=== PATIENT | male | born 1955 | race Caucasian/White ===

== ENCOUNTER → 2019-03-17 | Day surgery (SDC) | payer MEDICARE ==
[2019-03-12 14:40] LABS: BASOPHILS # (AUTO) 0.1 (0.0-0.1); BASOPHILS % 0.6 % (0.0-1.0); EOSINOPHILS # (AUTO) 0.3 (0.0-0.4); HEMATOCRIT 41.7 % (38.2-49.6); HEMOGLOBIN 14.3 g/dL (14.0-18.0); LYMPHOCYTES # (AUTO) 1.8 (1.0-3.2); LYMPHOCYTES % 16.1 % (18.0-39.1); MEAN CORPUSCULAR HEMOGLOBIN 33.5 pg (28-32); MEAN CORPUSCULAR HGB CONC 34.3 g/dL (31-35); MEAN CORPUSCULAR VOLUME 97.7 fL (81-99); MONOCYTES % 9.1 % (4.4-11.3); NEUTROPHILS # (AUTO) 7.7 (2.1-6.9); NEUTROPHILS % 70.6 % (38.7-80.0); PLATELET COUNT 203 x10e3/uL (140-360); RED BLOOD COUNT 4.27 x10e6/uL (4.3-5.7); RED CELL DISTRIBUTION WIDTH 12.6 % (11.7-14.4)
[~2019-03-17] MED LIST: ASPIRIN81 MG PO; ATORVASTATIN CA20 MG PO; BENAZEPRIL HCL20 MG PEG; CALAN SR240 MG PO; CHLORTHALIDONE25 MG PO; FENTANYL CITRATE/PF 100MCG/2 ML INJ ONE; INSPRA50 MG PO; MIDAZOLAM HCL 2 MG/2 ML VIAL ONE; MULTI-VITAMIN1 EACH PO; PROPOFOL IV EMULSION 10 MG/ML 50 ML VIAL ONE; PSYLLIUM HUSK1 GM PO; VITAMIN E400 UNI1 PO
--- OUTSIDE RECORDS SUMMARY | 2019-03-17 06:27 | XMS REPORT | Clinical Summary ---
Author Author [facility] Address Unknown Phone Unavailable Care Team Providers Care Lime Filter Operator Name Role Phone Darline Silver PCP Unavailable Allergies Comments Active Allergy Reactions Severity Noted Date Lip swelling, no breathing problem Ascorbic Acid (Vitamin C) Swelling Medium 04/21/2015 Skin spots Sulfa (Sulfonamide Rash Low 04/27/2013 Antibiotics) Medications End Date Status Medication Sig Dispensed Refills Start Date Active benazepril (LOTENSIN) 20 Take 20 mg by 0 MG tablet mouth 4 (four) times daily Patient takes 3 tablets (20mg x3) in in the morning and t tablet (20mg) in the evening.. Active chlorthalidone (HYGROTEN) Take 12.5 mg 0 25 MG tablet by mouth daily . Active atorvastatin (LIPITOR) 20 Take 20 mg by 0 MG tablet mouth daily . Active aspirin 81 MG EC tablet Take 81 mg by 0 mouth daily. Active verapamil (VERELAN PM) Take 360 mg 0 360 MG 24 hr by mouth. 6 capsuleIndications: NAFLD (nonalcoholic fatty liver disease), Abnormal liver function test, Metabolic syndrome Active eplerenone (INSPRA) 50 MG Take 50 mg by 0 tablet mouth 2 (two) times daily. Active multivitamin Take 1 tablet 0 (MULTIVITAMIN) per tablet by mouth daily. Active PSYLLIUM HUSK, ASPARTAME, Take 4,000 0 ORAL Units by mouth daily. 06/23/2018 Discontinued psyllium (METAMUCIL) 3.4 Take 1 packet 0 gram packet by mouth 2 (two) times daily. 06/23/2018 Discontinued spironolactone Take 25 mg by 0 (ALDACTONE) 25 MG mouth 2 (two) tabletIndications: NAFLD times daily . (nonalcoholic fatty liver disease) 08/08/2018 enoxaparin (LOVENOX) 40 Inject 0.4 11.2 mL 0 mg/0.4 mL Syrg mLs (40 mg 8 total) subcutaneousl y daily for 28 days. 07/21/2018 traMADol (ULTRAM) 50 mg Take 1 tablet 20 tablet 0 tablet (50 mg total) 8 by mouth every 6 (six) hours as needed for Pain for up to 10 days. Max Daily Amount: 200 mg Active Problems Problem Noted Date Ventral hernia 07/10/2018 Class 3 obesity with body mass index (BMI) of 40.0 to 44.9 in adult, 01/16/2018 unspecified obesity type, unspecified whether serious comorbidity present Acute pulmonary embolism 02/20/2017 Shortness of breath 02/20/2017 Pulmonary embolism 02/20/2017 Hyperkalemia 01/08/2017 Anemia 01/08/2017 Abnormal urinalysis 02/20/2016 Hypokalemia 02/20/2016 Hypertension, poor control 02/20/2016 Hyperlipidemia 02/20/2016 Liver fibrosis 10/25/2015 Preoperative clearance 01/06/2014 Obesity 01/06/2014 NAFLD (nonalcoholic fatty liver disease) 04/27/2013 Last Assessment & Plan: Is is the most likely cause of his elevated liver tests as discussed above. Abnormal liver function test 04/27/2013 Last Assessment & Plan: He has mildly elevated liver tests dating back to at least September 2011. Etiology is most likely nonalcoholic fatty liver disease (NAFLD). Alcohol consumption may also be playing a role although the data on binge drinking are less clear to and daily drinking. Other causes of liver disease including viral, metabolic, and autoimmune diseases were excluded. The extent of liver damage is difficult to assess without a liver biopsy, but his normal platelet count and normal portal vein on ultrasound suggest the absence of cirrhosis. Liver biopsy may be recommended depending on his initial evaluation. Status post Gallbladder polyp 04/27/2013 Last Assessment & Plan: He has four sub-centimeter whereby the polyps that will be followed up with abdominal ultrasound in 6 months. Metabolic syndrome 04/27/2013 Last Assessment & Plan: He meets the definition for metabolic syndrome i.e. excess BMI, hypertension, low HDL, and elevated blood glucose. Management is with weight loss and exercise. We discussed the value on a carbohydrate restricted diet combined with aerobic activity as an efficiently to lose weight. He will try this regime for 3 months, and we will consider the need for liver biopsy at his next visit. Peripheral edema 04/27/2013 Last Assessment & Plan: He has mild bilateral pedal edema. I believe that this will improve with weight loss, and do not plan to treat at the present. Encounters Care Team Description Date Type Specialty Jake Horan MD Fuller, [place], NP NAFLD (nonalcoholic fatty liver disease) (Primary Dx); Metabolic syndrome; Abnormal liver function test; Class 3 severe obesity with body mass index (BMI) of 40.0 to 44.9 in adult, unspecified obesity type, unspecified whether serious comorbidity present (HCC) 01/16/2019 Office Visit Hepatology Estrellita Sparks MA 01/06/2019 Documentation Hepatology Tori Alfonso RN NAFLD (nonalcoholic fatty liver disease) (Primary Dx) 01/02/2019 Orders Only Hepatology Ej Lau II, MD LAPAROSCOPY,HERNIORRHAPHY VENTRAL 07/10/2018 Surgery René Martinez MD 07/10/2018 Anesthesia Event Ej Lau II, MD 07/10/2018 Hospital General Internal Medicine - Encounter 07/11/2018 Ej Lau II, MD Abnormal liver function test 06/23/2018 Hospital Pre-Admission Testing Encounter 06/23/2018 Orders Only General Internal Medicine after 03/16/2018 Family History Medical History Relation Name Comments Heart attack Father Hypertension Father Cancer Maternal prostate Grandfather Cancer Maternal Grandmother Edema Mother Hypertension Mother Heart disease Paternal DE Grandfather Edema Sister Liver disease Sister fatty liver disease Other Sister Relation Name Status Comments Father Maternal Grandfather Maternal Grandmother Mother Paternal Grandfather Sister Alive Sister Sister Social History Date Tobacco Use Types Packs/Day Years Used Never Smoker Smokeless Tobacco: Never Used Alcohol Use Drinks/Week oz/Week Comments Yes 2 Shots of 1.2 12 / bourbon week, social liquor Sex Assigned at Date Recorded Not on file Industry Job Start Date Occupation Not on file Not on file Not on file Travel End Travel History Travel Start No recent travel history available. Last Filed Vital Signs Time Taken Vital Sign Reading 01/16/2019 10:03 AM CDT Blood Pressure 122/76 01/16/2019 10:03 AM CDT Pulse 106 01/16/2019 10:03 AM CDT Temperature 37.1 C (98.7 F) 01/16/2019 10:03 AM CDT Respiratory Rate 16 01/16/2019 10:03 AM CDT Oxygen Saturation 95% - Inhaled Oxygen - Concentration 01/16/2019 10:03 AM CDT Weight 148.1 kg (326 lb 6.4 oz) 01/16/2019 10:03 AM CDT Height 177.8 cm (5' 10") 01/16/2019 10:03 AM CDT Body Mass Index 46.83 Plan of Treatment Care Team Description Date Type Specialty Resource, [facility] 09/21/2019 Office Visit Hepatology Implants Device Identifier Shelf Expiration Date Model / Serial / Lot Implanted Type Area Manufactur er 09/08/2019 [id number] / [id number] / [id number] Mesh Ventralight [id number] [id number] - Mesh N/A: Abdomen CR [id number] BARD:DAVOL Implanted: Qty: 1 on 07/10/2018 by Ej Lau II, MD Procedures Comments Procedure Name Priority Date/Time Associated Diagnosis BASIC METABOLIC PANEL (7) Routine 01/06/2019 NAFLD (nonalcoholic fatty 12:00 AM CDT liver disease) HEPATIC FUNCTION PANEL Routine 01/06/2019 NAFLD (nonalcoholic fatty 12:00 AM CDT liver disease) CBC W/PLT COUNT & AUTO Routine 01/06/2019 NAFLD (nonalcoholic fatty DIFFERENTIAL 12:00 AM CDT liver disease) PROTHROMBIN TIME/INR Routine 08/22/2018 NAFLD (nonalcoholic fatty 7:22 AM LEAD PRINTER liver disease) CBC W/PLT COUNT & AUTO Routine 08/22/2018 NAFLD (nonalcoholic fatty DIFFERENTIAL 7:22 AM LEAD PRINTER liver disease) HEPATIC FUNCTION PANEL Routine 08/22/2018 NAFLD (nonalcoholic fatty 7:22 AM LEAD PRINTER liver disease) BASIC METABOLIC PANEL (7) Routine 08/22/2018 NAFLD (nonalcoholic fatty 7:22 AM LEAD PRINTER liver disease) RHYTHM STRIP - SCAN 07/15/2018 10:30 AM LEAD PRINTER TRANSFUSION SERVICE 07/11/2018 REPORT - SCAN 6:00 PM LEAD PRINTER CBC W/PLT COUNT & AUTO Routine 07/11/2018 DIFFERENTIAL 4:41 AM LEAD PRINTER CBC W/PLT COUNT & AUTO Routine 07/11/2018 DIFFERENTIAL 4:41 AM LEAD PRINTER PHOSPHORUS Routine 07/11/2018 4:41 AM LEAD PRINTER MAGNESIUM Routine 07/11/2018 4:41 AM LEAD PRINTER BASIC METABOLIC PANEL (7) Routine 07/11/2018 4:41 AM LEAD PRINTER TISSUE EXAM AP Routine 07/10/2018 11:07 AM LEAD PRINTER LAPAROSCOPY,HERNIORRHAPHY 07/10/2018 Ventral hernia without VENTRAL 10:02 AM LEAD PRINTER obstruction or gangrene Special Needs (MESH) TYPE AND SCREEN, Routine 07/10/2018 AUTOMATED 9:09 AM LEAD PRINTER BUN AND CREATININE Routine 06/23/2018 3:47 PM LEAD PRINTER ELECTROLYTE PANEL Routine 06/23/2018 3:47 PM LEAD PRINTER HEMOGLOBIN Routine 06/23/2018 3:47 PM LEAD PRINTER ECG 12-LEAD Routine 06/23/2018 3:46 PM LEAD PRINTER Procedure Note - Interface, External Ris In - 06/23/2018 4:53 PM LEAD PRINTER Ventricula r Rate 89 BPM Atrial Rate 89 BPM P-R Interval 190 ms QRS Duration 98 ms Q-T Interval 350 ms QTC Calculatio n(Bazett) 425 ms P [place] 48 degrees R [place] 16 degrees T [place] -8 degrees Normal sinus rhythm Normal ECG When compared with ECG of 13:12, No significan t change was found ECG 12-LEAD Routine 06/23/2018 3:46 PM LEAD PRINTER after 03/16/2018 Results * CBC with platelet count + automated diff (01/06/2019 12:00 AM CDT) Only the most recent of 2 results within the time period is included. WBC 8.0 3.4 - 10.8 x10E3/uL [facility] RBC 4.41 4.14 - 5.80 x10E6/uL [facility] Hemoglobin 14.5 13.0 - 17.7 g/dL [facility] 1 Hematocrit 44.4 37.5 - 51.0 % [facility] 1 MCV 101 (H) 79 - 97 fL [facility] 1 MCH 32.9 26.6 - 33.0 pg [facility] 1 MCHC 32.7 31.5 - 35.7 g/dL [facility] 1 RDW 13.5 12.3 - 15.4 % [facility] 1 Platelets 185Comment: 150 - 450 x10E3/uL [facility] 1 Please note reference interval change % Neutros 67 Not Estab. % [facility] % Lymphs 19 Not Estab. % [facility] % Monos 9 Not Estab. % [facility] % Eos 4 Not Estab. % [facility] % Baso 1 Not Estab. % [facility] # Neutros 5.4 1.4 - 7.0 x10E3/uL [facility] # Lymphs 1.6 0.7 - 3.1 x10E3/uL [facility] # Monos 0.7 0.1 - 0.9 x10E3/uL [facility] # Eos 0.3 0.0 - 0.4 x10E3/uL [facility] 1 Baso (Absolute) 0.0 0.0 - 0.2 x10E3/uL [facility] % Immature Grans 0 Not Estab. % [facility] # Immature Grans 0.0 0.0 - 0.1 x10E3/uL [facility] 1 Specimen Blood Narrative Performed At Performed at: [facility] [address] [place], [id number] Cord Splicer: Davy Rinaldi MD, Phone:[phone] Performing Organization Address City/State/Zipcode Phone Number [facility] * Hepatic function panel (01/06/2019 12:00 AM CDT) Only the most recent of 2 results within the time period is included. Protein, Total, Serum 7.4 6.0 - 8.5 g/dL [facility] Albumin, Serum 4.6 3.6 - 4.8 g/dL [facility] 1 Bilirubin, Total 0.7 0.0 - 1.2 mg/dL [facility] 1 Bilirubin, Direct 0.15 0.00 - 0.40 mg/dL [facility] 1 Alkaline Phosphatase, S 53 39 - 117 IU/L [facility] 1 AST (SGOT) 27 0 - 40 IU/L [facility] 1 ALT (SGPT) 48 (H) 0 - 44 IU/L [facility] 1 Specimen Blood Narrative Performed At Performed at: [facility] [place], [id number] Cord Splicer: Davy Rinaldi MD, Phone:[phone] Performing Organization Address [facility] Phone Number [facility] * Basic Metabolic Panel (01/06/2019 12:00 AM CDT) Only the most recent of 3 results within the time period is included. Glucose, Serum 117 (H) 65 - 99 mg/dL [facility] BUN 26 8 - 27 mg/dL [facility] 1 Creatinine, Serum 1.03 0.76 - 1.27 mg/dL [facility] 1 eGFR If NonAfricn Am 76 >59 mL/min/1.73 [facility] 1 eGFR If Africn Am 88 >59 mL/min/1.73 [facility] 1 BUN/Creatinine Ratio 25 (H) 10 - 24 [facility] 1 Sodium, Serum 138 134 - 144 mmol/L [facility] 1 Potassium, Serum 5.1 3.5 - 5.2 mmol/L [facility] 1 Chloride, Serum 99 96 - 106 mmol/L [facility] 1 Carbon Dioxide, Total 22 20 - 29 mmol/L [facility] 1 Calcium, Serum 9.9 8.6 - 10.2 mg/dL [facility] 1 Specimen Blood Narrative Performed At Performed at: [facility] [place], [id number] Cord Splicer: Davy Rinaldi MD, Phone:[phone] Performing Organization Address [facility] Phone Number [facility] * Pro-time/INR (08/22/2018 7:22 AM LEAD PRINTER) INR 1.0 0.8 - 1.2 [facility] Comment: Reference interval is for non-anticoagulated patients. Suggested INR therapeutic range for Vitamin K antagonist therapy: Standard Dose (moderate intensity therapeutic range): 2.0 - 3.0 Higher intensity therapeutic range 2.5 - 3.5 Prothrombin Time 10.7 9.1 - 12.0 sec [facility] 1 Specimen Blood Narrative Performed At Performed at:01 - [facility] [address] [facility], [id number] Cord Splicer: Davy Rinaldi MD, Phone:[phone] Performing Organization Address City/State/Zipcode Phone Number [facility] * RHYTHM STRIP - SCAN (07/15/2018 10:30 AM LEAD PRINTER) Narrative Performed At * TRANSFUSION SERVICE REPORT - SCAN (07/11/2018 6:00 PM LEAD PRINTER) Narrative Performed At * CBC with platelet count + automated diff (07/11/2018 4:41 AM LEAD PRINTER) WBC 9.5 3.5 - 10.5 K/L [facility] RBC 3.58 (L) 4.63 - 6.08 M/L [facility] Hemoglobin 11.6 (L) 13.7 - 17.5 GM/DL [facility] Hematocrit 34.7 (L) 40.1 - 51.0 % [facility] MCV 96.9 (H) 79.0 - 92.2 fL [facility] MCH 32.4 (H) 25.7 - 32.2 pg [facility] MCHC 33.4 32.3 - 36.5 GM/DL [facility] RDW 12.7 11.6 - 14.4 % [facility] Platelets 120 (L) 150 - 450 K/CU MM [facility] MPV 10.0 9.4 - 12.4 fL [facility] nRBC 0 0 - 0 /100 WBC [facility] % Neutros 83 % [facility] % Lymphs 7 % [facility] % Monos 10 % [facility] % Eos 0 % [facility] % Baso 0 % [facility] # Neutros 7.80 (H) 1.78 - 5.38 K/L [facility] # Lymphs 0.63 (L) 1.32 - 3.57 K/L [facility] # Monos 0.94 (H) 0.30 - 0.82 K/L [facility] # Eos 0.00 (L) 0.04 - 0.54 K/L [facility] # Baso 0.01 0.01 - 0.08 K/L [facility] Immature 1 0 - 1 % [facility] Granulocytes-[facility] Specimen Blood Performing Organization Address City/[facility]/Zipcode Phone Number [address] * Phosphorus (07/11/2018 4:41 AM LEAD PRINTER) Phosphorus 3.0 2.3 - 4.7 mg/dL [facility] Specimen Blood Performing Organization Address City/[facility] Phone Number [address] * Magnesium (07/11/2018 4:41 AM LEAD PRINTER) Magnesium 1.4 (L) 1.6 - 2.6 mg/dL [facility] Specimen Blood Performing Organization Address City/[facility] Phone Number [address] * Tissue Exam (07/10/2018 11:07 AM LEAD PRINTER) Case Report Surgical Pathology [facility] Case: [id number] Authorizing Provider:Ej Lau MDCollected: 07/10/2018 1107 Ordering Location: [facility] Received: 07/10/2018 1135 SERVICES Pathologist: Tristen Yang MD Specimen:Hernia, ventral hernia sac DIAGNOSIS HERNIA, VENTRAL, [facility] HERNIORRHAPHY: [facility] - CONSISTENT WITH HERNIA SAC - VENTRAL HERNIA (CLINICAL DIAGNOSIS) Signing Pathologist Direct Phone Line: [phone] CPT Code(s) 98694 [facility] CLINICAL HISTORY Ventral hernia [facility] SPECIMEN SOURCE Ventral hernia sac [facility] GROSS DESCRIPTION Received fresh labeled [facility] "hernia", description "ventral [facility] hernia sac" are two irregular pink-stone to armijo-white, rubbery, wrinkled portions of fibromembranous and adipose tissue measuring 9.5 x 7.0 x 0.6 cm in greatest dimension. Sectioning reveals no discrete masses. Mathematician Research sections are submitted in cassette A1. DB/pl MICROSCOPIC DESCRIPTION Performed [facility] Specimen Tissue Performing Organization Address City/[facility] Phone Number [address] [address] [phone] [place] [address] * Type and screen, automated (07/10/2018 9:09 AM LEAD PRINTER) ABO/RH AUTOMATED (BEAKER) A POSITIVE [facility] Ab Scrn NEGATIVE [facility] Specimen Blood Performing Organization Address City/[facility] Phone Number [address] [address] [phone] [place] [address] * BUN and Creatinine (06/23/2018 3:47 PM LEAD PRINTER) BUN 34 (H) 7 - 21 mg/dL [facility] Creatinine 1.20 0.57 - 1.25 mg/dL [facility] EGFR 61Comment: ESTIMATED GFR IS mL/min/1.73 sq m [facility] NOT ACCURATE CREATININE [facility] CLEARANCE IN PREDICTING GLOMERULAR FILTRATION RATE. ESTIMATED GFR IS NOT APPLICABLE FOR DIALYSIS PATIENTS. Specimen Blood Performing Organization Address [facility] Phone Number [facility] [address] [place], [place] [phone] [facility] * Hemoglobin (06/23/2018 3:47 PM LEAD PRINTER) Hemoglobin 14.4 13.7 - 17.5 GM/DL [facility] Specimen Blood Performing Organization Address City/[facility] Phone Number [facility] [address] [place] [address] [facility] * Electrolytes (06/23/2018 3:47 PM LEAD PRINTER) Sodium 136 136 - 145 meq/L [facility] Potassium 4.6 3.5 - 5.1 meq/L [facility] Chloride 102 98 - 107 meq/L [facility] CO2 25 22 - 29 meq/L [facility] Specimen Blood Performing Organization Address [facility] Phone Number [facility] [address] [place] [address] [facility] * ECG 12 lead (06/23/2018 3:46 PM LEAD PRINTER) Specimen Narrative Performed At Ventricular Rate 89 BPM GE MUSE Atrial Rate 89 BPM P-R Interval 190 ms QRS Duration 98 ms Q-T Interval 350 ms QTC Calculation(Bazett) 425 ms P [place] 48 degrees R [place] 16 degrees T [place] -8 degrees Normal sinus rhythm Normal ECG When compared with ECG of 20-FEB-2017 13:12, No significant change was found Confirmed by MD SALDAÑA JOSEPH P ([id number]) on 06/24/2018 6:10:36 AM Procedure Note Interface, External Ris In - 06/24/2018 6:10 AM LEAD PRINTER Ventricular Rate 89 BPM Atrial Rate 89 BPM P-R Interval 190 ms QRS Duration 98 ms Q-T Interval 350 ms QTC Calculation(Bazett) 425 ms P [place] 48 degrees R [place] 16 degrees T [place] -8 degrees Normal sinus rhythm Normal ECG When compared with ECG of 20-FEB-2017 13:12, No significant change was found Confirmed by MD SALDAÑA JOSEPH P ([id number]) on 06/24/2018 6:10:36 AM Performing Organization Address City/State/Zipcode Phone Number GE MUSE after 03/16/2018 Insurance Payer Benefit Subscriber ID Type Phone Address Plan / Group [employer] - [employer]GD [employer] HMO xxxxxxxxx HMO/POS CARE POS SELECT CHOICE Advance Directives Patient has advance care planning documents, and code status on file. For more i nformation, please contact: [address] [address] Date Inactivated Comments Code Status Date Activated Full Code 07/10/2018 8:47 AM This code status was determined by: Patient 02/24/2017 3:08 PM Full Code 02/20/2017 11:37 AM This code status was determined by: Patient 01/11/2014 4:24 PM All possible means of support including;cardiac massage, mechanical ventilation, and defibrillation will be used to support life. Code ONE 01/11/2014 6:31 AM
--- OUTSIDE RECORDS SUMMARY | 2019-03-17 06:28 | XMS REPORT ---
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 Allergies, Adverse Reactions, Alerts This patient has no known allergies or adverse reactions. Medications This patient has no known medications. Results Test Description Test Time Test Comments Text Results Atomic Results Result Comments TISSUE EXAM 2018-07-14 17:23:00 Surgical Pathology Report Case: [id number] Authorizing Provider: aMnuel Babb MD Collected: 07/10/2018 1107 Ord ering Location: [facility] PERIOPERATIVE Received: 07/10/2018 1135 SERVICES Pathologist: Tristen Yang MD Specimen: Hernia, ventral hernia sac HERNIA, VENTRAL, HERNIORRHAPHY: - CONSISTENT WITH HERNIA SAC - VENTRAL HERNIA (CLINICAL DIAGNOSIS) Signing Pathologist Direct Phone Line: [phone] signed by Tristen Yang MD on 07/14/2018 at 5:23 [id number] herniaVentral hernia sacReceived fresh labeled "hernia", description "ventral hernia sac" are two irregular pink-stone to armijo-white, rubbery, wrinkled portions of fibromembranous and adipose tissue measuring 9.5 x 7.0 x 0.6 cm in greatest dimension. Sectioning reveals no discrete masses. Jig Maker sections are submitted in cassette A1. DB/plPerformed PHOSPHORUS 2018-07-11 06:51:00 PHOSPHORUS (BEAKER) (test tedc=277) 3.0 mg/dL 2.3-4.7 [id number] 06:51:00* Test Item Value Reference Range Comments MAGNESIUM (BEAKER) (test qnns=107) 1.4 mg/dL 1.6-2.6 BASIC METABOLIC [id number] 06:51:00* Test Item Value Reference Range Comments SODIUM (BEAKER) (test icfr=972) 131 meq/L 136-145 POTASSIUM (BEAKER) (test unsx=785) 4.6 meq/L 3.5-5.1 CHLORIDE (BEAKER) (test zpnj=724) 103 meq/L 98-107 CO2 (BEAKER) (test yqig=585) 21 meq/L 22-29 BLOOD UREA NITROGEN (BEAKER) (test wcun=337) 37 mg/dL 7-21 CREATININE (BEAKER) (test jqex=633) 1.06 mg/dL 0.57-1.25 GLUCOSE RANDOM (BEAKER) (test hyxc=587) 142 mg/dL 70-105 CALCIUM (BEAKER) (test lfct=331) 8.5 mg/dL 8.4-10.2 EGFR (BEAKER) (test lcsy=6138) 70 mL/min/1.73 sq m ESTIMATED GFR IS NOT ACCURATE CREATININE CLEARANCE IN PREDICTING GLOMERULAR FILTRATION RATE. ESTIMATED GFR IS NOT APPLICABLE FOR DIALYSIS PATIENTS. CBC W/PLT COUNT & AUTO [id number] 05:12:00* Test Item Value Reference Range Comments WHITE BLOOD CELL COUNT (BEAKER) (test pnax=599) 9.5 K/ L 3.5-10.5 RED BLOOD CELL COUNT (BEAKER) (test aktg=726) 3.58 M/ L 4.63-6.08 HEMOGLOBIN (BEAKER) (test vdrw=461) 11.6 GM/DL 13.7-17.5 HEMATOCRIT (BEAKER) (test tzbu=374) 34.7 % 40.1-51.0 MEAN CORPUSCULAR VOLUME (BEAKER) (test zcov=903) 96.9 fL 79.0-92.2 MEAN CORPUSCULAR HEMOGLOBIN (BEAKER) (test jndc=793) 32.4 pg 25.7-32.2 MEAN CORPUSCULAR HEMOGLOBIN CONC (BEAKER) (test wjqf=584) 33.4 GM/DL 32.3-36.5 RED CELL DISTRIBUTION WIDTH (BEAKER) (test hchq=504) 12.7 % 11.6-14.4 PLATELET COUNT (BEAKER) (test qefl=525) 120 K/CU MM 150-450 MEAN PLATELET VOLUME (BEAKER) (test rmxf=661) 10.0 fL 9.4-12.4 NUCLEATED RED BLOOD CELLS (BEAKER) (test wyuw=511) 0 /100 WBC 0-0 NEUTROPHILS RELATIVE PERCENT (BEAKER) (test dmte=518) 83 % LYMPHOCYTES RELATIVE PERCENT (BEAKER) (test eshw=973) 7 % MONOCYTES RELATIVE PERCENT (BEAKER) (test ocpe=172) 10 % EOSINOPHILS RELATIVE PERCENT (BEAKER) (test gldw=405) 0 % BASOPHILS RELATIVE PERCENT (BEAKER) (test yztb=876) 0 % NEUTROPHILS ABSOLUTE COUNT (BEAKER) (test tyht=441) 7.80 K/ L 1.78-5.38 LYMPHOCYTES ABSOLUTE COUNT (BEAKER) (test mnrn=801) 0.63 K/ L 1.32-3.57 MONOCYTES ABSOLUTE COUNT (BEAKER) (test stpe=095) 0.94 K/ L 0.30-0.82 EOSINOPHILS ABSOLUTE COUNT (BEAKER) (test zntk=644) 0.00 K/ L 0.04-0.54 BASOPHILS ABSOLUTE COUNT (BEAKER) (test mpyh=538) 0.01 K/ L 0.01-0.08 IMMATURE GRANULOCYTES-RELATIVE PERCENT (BEAKER) (test tsel=2570) 1 % 0-1 [id number] 17:03:00* Test Item Value Reference Range Comments SODIUM (BEAKER) (test ceee=117) 136 meq/L 136-145 POTASSIUM (BEAKER) (test grka=337) 4.6 meq/L 3.5-5.1 CHLORIDE (BEAKER) (test kddk=038) 102 meq/L 98-107 CO2 (BEAKER) (test nstw=829) 25 meq/L 22-29 BUN AND [id number] 17:03:00* Test Item Value Reference Range Comments BLOOD UREA NITROGEN (BEAKER) (test lpwx=599) 34 mg/dL 7-21 CREATININE (BEAKER) (test nadn=579) 1.20 mg/dL 0.57-1.25 EGFR (BEAKER) (test fnad=4922) 61 mL/min/1.73 sq m ESTIMATED GFR IS NOT ACCURATE CREATININE CLEARANCE IN PREDICTING GLOMERULAR FILTRATION RATE. ESTIMATED GFR IS NOT APPLICABLE FOR DIALYSIS PATIENTS. [id number] 16:43:00* Test Item Value Reference Range Comments HEMOGLOBIN (BEAKER) (test suzm=759) 14.4 GM/DL 13.7-17.5 HEPATIC FUNCTION [id number] 12:48:00* Test Item Value Reference Range Comments TOTAL PROTEIN (BEAKER) (test mauy=856) 7.5 gm/dL 6.0-8.3 ALBUMIN (BEAKER) (test awja=7914) 4.1 g/dL 3.5-5.0 BILIRUBIN TOTAL (BEAKER) (test odcf=479) 0.6 mg/dL 0.2-1.2 BILIRUBIN DIRECT (BEAKER) (test tcrv=500) 0.2 mg/dL 0.1-0.5 ALKALINE PHOSPHATASE (BEAKER) (test bdwe=765) 47 U/L 40-150 AST (SGOT) (BEAKER) (test yyxb=037) 26 U/L 5-34 ALT (SGPT) (BEAKER) (test uant=872) 47 U/L 6-55 BASIC METABOLIC [id number] 12:48:00* Test Item Value Reference Range Comments SODIUM (BEAKER) (test qtlq=203) 136 meq/L 136-145 POTASSIUM (BEAKER) (test pkcm=865) 4.5 meq/L 3.5-5.1 CHLORIDE (BEAKER) (test bkxk=749) 102 meq/L 98-107 CO2 (BEAKER) (test kqra=330) 21 meq/L 22-29 BLOOD UREA NITROGEN (BEAKER) (test cshx=737) 37 mg/dL 7-21 CREATININE (BEAKER) (test vlum=421) 1.16 mg/dL 0.57-1.25 GLUCOSE RANDOM (BEAKER) (test aikx=906) 105 mg/dL 70-105 CALCIUM (BEAKER) (test ftib=353) 10.1 mg/dL 8.4-10.2 EGFR (BEAKER) (test dsfq=2033) 64 mL/min/1.73 sq m ESTIMATED GFR IS NOT ACCURATE CREATININE CLEARANCE IN PREDICTING GLOMERULAR FILTRATION RATE. ESTIMATED GFR IS NOT APPLICABLE FOR DIALYSIS PATIENTS. PROTHROMBIN TIME/[id number] 12:23:00* Test Item Value Reference Range Comments PROTIME (BEAKER) (test jbrl=032) 13.3 seconds 11.7-14.7 INR (BEAKER) (test gxeg=503) 1.0 <=5.9 RECOMMENDED COUMADIN/WARFARIN INR THERAPY RANGESSTANDARD DOSE: 2.0 - 3.0 Inclu miguel: PROPHYLAXIS for venous thrombosis, systemic embolization; TREATMENT for anjali ous thrombosis and/or pulmonary embolus.HIGH RISK: Target INR is 2.5-3.5 for pat ients with mechanical heart valves.CBC W/PLT COUNT & AUTO [id number] 12:14:00* Test Item Value Reference Range Comments WHITE BLOOD CELL COUNT (BEAKER) (test cjzr=532) 7.5 K/ L 3.5-10.5 RED BLOOD CELL COUNT (BEAKER) (test gxuq=972) 3.88 M/ L 4.63-6.08 HEMOGLOBIN (BEAKER) (test bqdm=781) 13.1 GM/DL 13.7-17.5 HEMATOCRIT (BEAKER) (test opbw=144) 38.5 % 40.1-51.0 MEAN CORPUSCULAR VOLUME (BEAKER) (test euzv=011) 99.2 fL 79.0-92.2 MEAN CORPUSCULAR HEMOGLOBIN (BEAKER) (test dkkh=428) 33.8 pg 25.7-32.2 MEAN CORPUSCULAR HEMOGLOBIN CONC (BEAKER) (test lowq=573) 34.0 GM/DL 32.3-36.5 RED CELL DISTRIBUTION WIDTH (BEAKER) (test pohv=139) 12.8 % 11.6-14.4 PLATELET COUNT (BEAKER) (test avpq=170) 171 K/CU MM 150-450 MEAN PLATELET VOLUME (BEAKER) (test otie=020) 10.1 fL 9.4-12.4 NUCLEATED RED BLOOD CELLS (BEAKER) (test abmk=034) 0 /100 WBC 0-0 NEUTROPHILS RELATIVE PERCENT (BEAKER) (test uoep=012) 62 % LYMPHOCYTES RELATIVE PERCENT (BEAKER) (test bkbx=266) 20 % MONOCYTES RELATIVE PERCENT (BEAKER) (test oaeg=443) 12 % EOSINOPHILS RELATIVE PERCENT (BEAKER) (test iirv=312) 5 % BASOPHILS RELATIVE PERCENT (BEAKER) (test khzu=697) 1 % NEUTROPHILS ABSOLUTE COUNT (BEAKER) (test vxmz=151) 4.66 K/ L 1.78-5.38 LYMPHOCYTES ABSOLUTE COUNT (BEAKER) (test zlsi=018) 1.52 K/ L 1.32-3.57 MONOCYTES ABSOLUTE COUNT (BEAKER) (test exuz=743) 0.88 K/ L 0.30-0.82 EOSINOPHILS ABSOLUTE COUNT (BEAKER) (test guhl=461) 0.34 K/ L 0.04-0.54 BASOPHILS ABSOLUTE COUNT (BEAKER) (test nufc=966) 0.06 K/ L 0.01-0.08 IMMATURE GRANULOCYTES-RELATIVE PERCENT (BEAKER) (test vwkk=3426) 1 % 0-1 CT, CHEST WITH IV CONTRAST- PE TEST [id number] 09:25:00FINAL REPORT CT Chest PE Protocol dated 06/20/2017 COMPARISON: February 21, 2017 Clinical information: PE Technique: This exam was performed according to our departmental dose-optimization program, which includes automated exposure control, adjustment of the mA and/or kV according to patient size and/or use of interactive reconstruction technique. Precontrast axial images were obtained at pulmonary trunk level for the purpose of monitoring subsequent IV contrast. Postcontrast axial images of the chest were obtained from above the arch level to the lower chest at maximum enhancement of pulmonary artery. Delayed axial images of the entire chest were obtained subsequently. Coronal and sagittal reformations of the pulmonary arteries were performed. Comment: Heart is normal in size. Greater vessels are unremarkable. There is interval resolution of the f illing defects in the left main and left lower lobe pulmonary arteries. There is interval decrease in size of the filling defect in the the right lower lobe pul monary artery. No adenopathy is noted in the mediastinum or perihilar region. Tr achea and mainstem bronchi are patent. Minimal scarring is noted in the left upp er lobe and lung bases. The rest of the lungs are clear. No nodular, mass lesion or airspace is present. No pleural effusion or pleural base mass is seen. Impre ssion: 1. Interval resolution of the pulmonary thromboembolism in the left main and left lower lobe pulmonary arteries.2. Interval improvement of the pulmonary thromboembolism in the right lower lobe pulmonary artery. Signed: Meredith Templeton Verified Date/Time: 06/20/2017 09:25:24 Reading Location: [address] Body Reading Room Electronically signed by: MEREDITH TEMPLETON M.D. on 04/2017 09:25 AM [id number] 08:20:00* Test Item Value Reference Range Comments POC-CREATININE (BEAKER) (test aukf=6042) 1.4 mg/dL 0.6-1.3 TESTED AT [place] [id number] [facility] [address] POC-EGFR (BEAKER) (test zgdn=1074) 51 mL/min/1.73M2 COMPREHENSIVE METABOLIC [id number] 07:08:00* Test Item Value Reference Range Comments TOTAL PROTEIN (BEAKER) (test vhnj=215) 6.9 gm/dL 6.0-8.3 ALBUMIN (BEAKER) (test tvfr=2857) 3.5 g/dL 3.5-5.0 ALKALINE PHOSPHATASE (BEAKER) (test lhfm=766) 56 U/L 40-150 BILIRUBIN TOTAL (BEAKER) (test yhkn=279) 0.4 mg/dL 0.2-1.2 SODIUM (BEAKER) (test smda=579) 131 meq/L 136-145 POTASSIUM (BEAKER) (test jbwy=930) 4.8 meq/L 3.5-5.1 CHLORIDE (BEAKER) (test jzya=491) 99 meq/L 98-107 CO2 (BEAKER) (test qycj=325) 22 meq/L 22-29 BLOOD UREA NITROGEN (BEAKER) (test ewdr=604) 33 mg/dL 7-21 CREATININE (BEAKER) (test ywrn=983) 1.88 mg/dL 0.57-1.25 GLUCOSE RANDOM (BEAKER) (test raow=005) 131 mg/dL 70-105 CALCIUM (BEAKER) (test tghy=768) 9.0 mg/dL 8.4-10.2 AST (SGOT) (BEAKER) (test cehd=121) 19 U/L 5-34 ALT (SGPT) (BEAKER) (test vuvz=037) 30 U/L 6-55 EGFR (BEAKER) (test wezi=9554) 36 mL/min/1.73 sq m ESTIMATED GFR IS NOT ACCURATE CREATININE CLEARANCE IN PREDICTING GLOMERULAR FILTRATION RATE. ESTIMATED GFR IS NOT APPLICABLE FOR DIALYSIS PATIENTS. CBC (HEMOGRAM ONLY)2017-02-24 06:51:00* Test Item Value Reference Range Comments WHITE BLOOD CELL COUNT (BEAKER) (test uohz=546) 6.9 K/ L 4.0-10.0 RED BLOOD CELL COUNT (BEAKER) (test ghsk=105) 3.39 M/ L 4.20-5.80 HEMOGLOBIN (BEAKER) (test xbrw=047) 11.4 GM/DL 13.0-16.8 HEMATOCRIT (BEAKER) (test gkya=280) 33.8 % 40.0-50.0 MEAN CORPUSCULAR VOLUME (BEAKER) (test rpos=549) 99.8 fL 82.0-98.0 MEAN CORPUSCULAR HEMOGLOBIN (BEAKER) (test crun=150) 33.6 pg 27.0-33.0 MEAN CORPUSCULAR HEMOGLOBIN CONC (BEAKER) (test vegm=735) 33.7 GM/DL 32.0-36.0 RED CELL DISTRIBUTION WIDTH (BEAKER) (test ienn=058) 12.4 % 10.3-14.2 PLATELET COUNT (BEAKER) (test htlx=453) 162 K/CU MM 150-430 MEAN PLATELET VOLUME (BEAKER) (test ufvi=050) 6.6 fL 6.5-10.5 NUCLEATED RED BLOOD CELLS (BEAKER) (test wmxb=014) 0 /100 WBC 0-0 0.00PROTHROMBIN TIME/[id number] 06:28:00* Test Item Value Reference Range Comments PROTIME (BEAKER) (test kncs=518) 14.2 seconds 11.7-14.7 INR (BEAKER) (test nlee=153) 1.1 <=5.9 RECOMMENDED COUMADIN/WARFARIN INR THERAPY RANGESSTANDARD DOSE: 2.0 - 3.0 Inclu miguel: PROPHYLAXIS for venous thrombosis, systemic embolization; TREATMENT for anjali ous thrombosis and/or pulmonary embolus.HIGH RISK: Target INR is 2.5-3.5 for pat ients with mechanical heart valves.While on warfarinHEPARIN ASSAY - LOW MOLECULAR [id number] 14:49:00* Test Item Value Reference Range Comments LOVENOX-ANTI 10A (BEAKER) (test bzje=0585) 1.22 u/ml 0.60-2.00 Effective 06/18/2016: Reference Range ChangeNew: 0.60-2.00 Previous: 0.60-1.99A nti-Factor 10A Level (Heparin Assay for Low Molecular Weight Heparin)Monitoring Guidelines: Blood samples should be obtained 4 hours post subcutaneous injection (time of Peak level) Therapeutic Peak Levels: 0.6-1.0 units/mL twice daily enoxaparin 1.0-2.0 units/mL once daily enoxaparinDraw level 4 hours after enoxaparin administration.[id number] 05:46:00* Test Item Value Reference Range Comments PHOSPHORUS (BEAKER) (test blep=319) 4.5 mg/dL 2.3-4.7 [id number] 05:46:00* Test Item Value Reference Range Comments MAGNESIUM (BEAKER) (test lkzm=035) 1.9 mg/dL 1.6-2.6 BASIC METABOLIC [id number] 05:46:00* Test Item Value Reference Range Comments SODIUM (BEAKER) (test ibal=737) 135 meq/L 136-145 POTASSIUM (BEAKER) (test bvsx=995) 4.2 meq/L 3.5-5.1 CHLORIDE (BEAKER) (test xnms=567) 101 meq/L 98-107 CO2 (BEAKER) (test cxdl=708) 23 meq/L 22-29 BLOOD UREA NITROGEN (BEAKER) (test xxer=764) 31 mg/dL 7-21 CREATININE (BEAKER) (test xijo=512) 2.11 mg/dL 0.57-1.25 GLUCOSE RANDOM (BEAKER) (test mvmo=346) 124 mg/dL 70-105 CALCIUM (BEAKER) (test bflw=642) 8.6 mg/dL 8.4-10.2 EGFR (BEAKER) (test wdrn=5582) 32 mL/min/1.73 sq m ESTIMATED GFR IS NOT ACCURATE CREATININE CLEARANCE IN PREDICTING GLOMERULAR FILTRATION RATE. ESTIMATED GFR IS NOT APPLICABLE FOR DIALYSIS PATIENTS. [id number] 05:40:00* Test Item Value Reference Range Comments PARTIAL THROMBOPLASTIN TIME (BEAKER) (test nevj=172) 57.1 seconds 22.5-36.0 PROTHROMBIN TIME/[id number] 05:39:00* Test Item Value Reference Range Comments PROTIME (BEAKER) (test sgte=931) 14.5 seconds 11.7-14.7 INR (BEAKER) (test xepz=759) 1.1 <=5.9 RECOMMENDED COUMADIN/WARFARIN INR THERAPY RANGESSTANDARD DOSE: 2.0 - 3.0 Inclu miguel: PROPHYLAXIS for venous thrombosis, systemic embolization; TREATMENT for anjali ous thrombosis and/or pulmonary embolus.HIGH RISK: Target INR is 2.5-3.5 for pat ients with mechanical heart valves.While on [id number] 13:02:00* Test Item Value Reference Range Comments PARTIAL THROMBOPLASTIN TIME (BEAKER) (test mxap=009) 66.3 seconds 22.5-36.0 [id number] 04:08:00* Test Item Value Reference Range Comments PHOSPHORUS (BEAKER) (test ujwf=986) 4.5 mg/dL 2.3-4.7 [id number] 04:08:00* Test Item Value Reference Range Comments MAGNESIUM (BEAKER) (test rvxu=395) 1.7 mg/dL 1.6-2.6 COMPREHENSIVE METABOLIC [id number] 04:08:00* Test Item Value Reference Range Comments TOTAL PROTEIN (BEAKER) (test xbhx=151) 6.8 gm/dL 6.0-8.3 ALBUMIN (BEAKER) (test taix=5348) 3.5 g/dL 3.5-5.0 ALKALINE PHOSPHATASE (BEAKER) (test fnwt=704) 50 U/L 40-150 BILIRUBIN TOTAL (BEAKER) (test huov=119) 0.6 mg/dL 0.2-1.2 SODIUM (BEAKER) (test rnfo=742) 134 meq/L 136-145 POTASSIUM (BEAKER) (test fzyr=935) 4.3 meq/L 3.5-5.1 CHLORIDE (BEAKER) (test kqpk=729) 103 meq/L 98-107 CO2 (BEAKER) (test phwe=354) 20 meq/L 22-29 BLOOD UREA NITROGEN (BEAKER) (test oowv=979) 25 mg/dL 7-21 CREATININE (BEAKER) (test swrn=493) 1.01 mg/dL 0.57-1.25 GLUCOSE RANDOM (BEAKER) (test ciat=061) 122 mg/dL 70-105 CALCIUM (BEAKER) (test snul=137) 9.0 mg/dL 8.4-10.2 AST (SGOT) (BEAKER) (test cefi=759) 15 U/L 5-34 ALT (SGPT) (BEAKER) (test jfww=248) 26 U/L 6-55 EGFR (BEAKER) (test xqex=0609) 75 mL/min/1.73 sq m ESTIMATED GFR IS NOT ACCURATE CREATININE CLEARANCE IN PREDICTING GLOMERULAR FILTRATION RATE. ESTIMATED GFR IS NOT APPLICABLE FOR DIALYSIS PATIENTS. [id number] 03:47:00* Test Item Value Reference Range Comments PARTIAL THROMBOPLASTIN TIME (BEAKER) (test ksyq=104) 82.9 seconds 22.5-36.0 CBC W/PLT COUNT & AUTO [id number] 03:30:00* Test Item Value Reference Range Comments WHITE BLOOD CELL COUNT (BEAKER) (test rfud=159) 7.5 K/ L 4.0-10.0 RED BLOOD CELL COUNT (BEAKER) (test qmdn=465) 3.44 M/ L 4.20-5.80 HEMOGLOBIN (BEAKER) (test sytr=345) 12.2 GM/DL 13.0-16.8 HEMATOCRIT (BEAKER) (test tusz=098) 33.9 % 40.0-50.0 MEAN CORPUSCULAR VOLUME (BEAKER) (test qpmy=697) 98.6 fL 82.0-98.0 MEAN CORPUSCULAR HEMOGLOBIN (BEAKER) (test zjzf=872) 35.5 pg 27.0-33.0 MEAN CORPUSCULAR HEMOGLOBIN CONC (BEAKER) (test aurf=578) 36.0 GM/DL 32.0-36.0 RED CELL DISTRIBUTION WIDTH (BEAKER) (test yeug=319) 14.0 % 10.3-14.2 PLATELET COUNT (BEAKER) (test ryhr=947) 126 K/CU MM 150-430 MEAN PLATELET VOLUME (BEAKER) (test rngp=283) 6.9 fL 6.5-10.5 NUCLEATED RED BLOOD CELLS (BEAKER) (test iwsm=612) 0 /100 WBC 0-0 NEUTROPHILS RELATIVE PERCENT (BEAKER) (test ckiv=013) 68 % LYMPHOCYTES RELATIVE PERCENT (BEAKER) (test uxbz=883) 17 % MONOCYTES RELATIVE PERCENT (BEAKER) (test asmo=863) 11 % EOSINOPHILS RELATIVE PERCENT (BEAKER) (test gdps=542) 3 % BASOPHILS RELATIVE PERCENT (BEAKER) (test grqj=410) 0 % NEUTROPHILS ABSOLUTE COUNT (BEAKER) (test qmuf=710) 5.14 K/ L 1.80-8.00 LYMPHOCYTES ABSOLUTE COUNT (BEAKER) (test myqm=837) 1.30 K/ L 1.48-4.50 MONOCYTES ABSOLUTE COUNT (BEAKER) (test ksuj=776) 0.81 K/ L 0.00-1.30 EOSINOPHILS ABSOLUTE COUNT (BEAKER) (test byjf=629) 0.24 K/ L 0.00-0.50 BASOPHILS ABSOLUTE COUNT (BEAKER) (test guki=996) 0.02 K/ L 0.00-0.20 [id number] 21:04:00* Test Item Value Reference Range Comments PARTIAL THROMBOPLASTIN TIME (BEAKER) (test acyn=408) 60.0 seconds 22.5-36.0 HEMOGLOBIN [id number] 20:51:00* Test Item Value Reference Range Comments HEMOGLOBIN A1C (BEAKER) (test oswf=364) 5.7 % 4.3-6.1 [id number] 15:11:00* Test Item Value Reference Range Comments PARTIAL THROMBOPLASTIN TIME (BEAKER) (test qkdr=480) 83.2 seconds 22.5-36.0 [id number] 08:21:00* Test Item Value Reference Range Comments PARTIAL THROMBOPLASTIN TIME (BEAKER) (test kfok=710) 67.5 seconds 22.5-36.0 CBC W/PLT COUNT & AUTO [id number] 06:14:00* Test Item Value Reference Range Comments WHITE BLOOD CELL COUNT (BEAKER) (test gtck=345) 7.4 K/ L 4.0-10.0 RED BLOOD CELL COUNT (BEAKER) (test xbfm=094) 3.51 M/ L 4.20-5.80 HEMOGLOBIN (BEAKER) (test yneg=315) 11.7 GM/DL 13.0-16.8 HEMATOCRIT (BEAKER) (test gdnw=929) 34.9 % 40.0-50.0 MEAN CORPUSCULAR VOLUME (BEAKER) (test pdoe=221) 99.6 fL 82.0-98.0 MEAN CORPUSCULAR HEMOGLOBIN (BEAKER) (test yvmf=783) 33.3 pg 27.0-33.0 MEAN CORPUSCULAR HEMOGLOBIN CONC (BEAKER) (test udil=663) 33.4 GM/DL 32.0-36.0 RED CELL DISTRIBUTION WIDTH (BEAKER) (test btxl=690) 14.4 % 10.3-14.2 PLATELET COUNT (BEAKER) (test wadv=520) 128 K/CU MM 150-430 MEAN PLATELET VOLUME (BEAKER) (test kyih=979) 7.8 fL 6.5-10.5 NUCLEATED RED BLOOD CELLS (BEAKER) (test ypxi=147) 0 /100 WBC 0-0 NEUTROPHILS RELATIVE PERCENT (BEAKER) (test zjid=014) 68 % LYMPHOCYTES RELATIVE PERCENT (BEAKER) (test fyad=486) 17 % MONOCYTES RELATIVE PERCENT (BEAKER) (test ftar=997) 12 % EOSINOPHILS RELATIVE PERCENT (BEAKER) (test xfec=191) 4 % BASOPHILS RELATIVE PERCENT (BEAKER) (test spot=285) 0 % NEUTROPHILS ABSOLUTE COUNT (BEAKER) (test ddii=328) 5.02 K/ L 1.80-8.00 LYMPHOCYTES ABSOLUTE COUNT (BEAKER) (test slkz=381) 1.22 K/ L 1.48-4.50 MONOCYTES ABSOLUTE COUNT (BEAKER) (test cjsg=044) 0.86 K/ L 0.00-1.30 EOSINOPHILS ABSOLUTE COUNT (BEAKER) (test pqre=287) 0.27 K/ L 0.00-0.50 BASOPHILS ABSOLUTE COUNT (BEAKER) (test brha=110) 0.02 K/ L 0.00-0.20 [id number] 05:01:00* Test Item Value Reference Range Comments MAGNESIUM (BEAKER) (test luza=421) 1.9 mg/dL 1.6-2.6 Specimen slightly hemolyzed [id number] 05:01:00* Test Item Value Reference Range Comments PHOSPHORUS (BEAKER) (test diav=243) 5.1 mg/dL 2.3-4.7 Specimen slightly hemolyzed BASIC METABOLIC [id number] 05:01:00* Test Item Value Reference Range Comments SODIUM (BEAKER) (test vukt=172) 135 meq/L 136-145 POTASSIUM (BEAKER) (test tivo=580) 5.1 meq/L 3.5-5.1 Specimen slightly hemolyzed CHLORIDE (BEAKER) (test prru=759) 105 meq/L 98-107 CO2 (BEAKER) (test unjn=874) 21 meq/L 22-29 BLOOD UREA NITROGEN (BEAKER) (test mwhi=043) 29 mg/dL 7-21 CREATININE (BEAKER) (test wgko=910) 0.94 mg/dL 0.57-1.25 Specimen slightly hemolyzed GLUCOSE RANDOM (BEAKER) (test orqv=798) 128 mg/dL 70-105 CALCIUM (BEAKER) (test divy=062) 9.2 mg/dL 8.4-10.2 EGFR (BEAKER) (test lowj=0316) 81 mL/min/1.73 sq m ESTIMATED GFR IS NOT ACCURATE CREATININE CLEARANCE IN PREDICTING GLOMERULAR FILTRATION RATE. ESTIMATED GFR IS NOT APPLICABLE FOR DIALYSIS PATIENTS. [id number] 00:54:00* Test Item Value Reference Range Comments PARTIAL THROMBOPLASTIN TIME (BEAKER) (test xipr=056) 52.8 seconds 22.5-36.0 [id number] 17:50:00* Test Item Value Reference Range Comments PARTIAL THROMBOPLASTIN TIME (BEAKER) (test foal=557) 54.7 seconds 22.5-36.0 TROPONIN [id number] 16:03:00* Test Item Value Reference Range Comments TROPONIN I (BEAKER) (test dxue=395) < ng/mL 0.00-0.03 Effective 06/29/2014: Reference Range ChangeNew: 0.00-0.03 Previous 0.00-0.15T roponin I (TnI) levels must be interpreted in the context of the presenting symp toms and the clinical findings. Elevated TnI levels indicate myocardial damage, but are not specific for ischemic heart disease. Elevated TnI levels are seen in patients with other cardiac conditions (including myocarditis and congestive he art failure), and slight TnI elevations occur in patients with other conditions, including sepsis, renal failure, acidosis, acute neurological disease, and pers istent tachyarrhythmia.B-TYPE NATRIURETIC FACTOR (BNP)2017-02-20 11:42:00* Test Item Value Reference Range Comments B-TYPE NATRIURETIC PEPTIDE (BEAKER) (test wuid=435) < pg/mL 0-100 [id number] 11:33:00* Test Item Value Reference Range Comments MAGNESIUM (BEAKER) (test rmxt=826) 1.4 mg/dL 1.6-2.6 BASIC METABOLIC [id number] 11:33:00* Test Item Value Reference Range Comments SODIUM (BEAKER) (test elwl=219) 131 meq/L 136-145 POTASSIUM (BEAKER) (test pizw=432) 4.6 meq/L 3.5-5.1 CHLORIDE (BEAKER) (test usne=578) 101 meq/L 98-107 CO2 (BEAKER) (test xxua=135) 22 meq/L 22-29 BLOOD UREA NITROGEN (BEAKER) (test aevy=544) 30 mg/dL 7-21 CREATININE (BEAKER) (test grvw=334) 1.07 mg/dL 0.57-1.25 GLUCOSE RANDOM (BEAKER) (test ahtn=135) 116 mg/dL 70-105 CALCIUM (BEAKER) (test oney=486) 9.7 mg/dL 8.4-10.2 EGFR (BEAKER) (test vppw=1385) 70 mL/min/1.73 sq m ESTIMATED GFR IS NOT ACCURATE CREATININE CLEARANCE IN PREDICTING GLOMERULAR FILTRATION RATE. ESTIMATED GFR IS NOT APPLICABLE FOR DIALYSIS PATIENTS. CREATINE KINASE (CK), TOTAL AND [id number] 11:33:00* Test Item Value Reference Range Comments CREATINE KINASE TOTAL (BEAKER) (test awqd=469) 36 U/L 29-200 CREATINE KINASE-MB (BEAKER) (test zqvr=188) 0.8 ng/mL 0.0-6.6 CREATINE KINASE-MB INDEX (BEAKER) (test ornx=512) 2.2 % Effective 06/29/2014: CK-MB Reference Range ChangeNew: 0.0-6.6 Previous: 0.0- 4.9CK-MB Reference Range:<6.7 Normal6.7-10.0 Borderline>10.0 Abnormal TROPONIN [id number] 11:28:00* Test Item Value Reference Range Comments TROPONIN I (BEAKER) (test ocmf=979) < ng/mL 0.00-0.03 Effective 06/29/2014: Reference Range ChangeNew: 0.00-0.03 Previous 0.00-0.15T roponin I (TnI) levels must be interpreted in the context of the presenting symp toms and the clinical findings. Elevated TnI levels indicate myocardial damage, but are not specific for ischemic heart disease. Elevated TnI levels are seen in patients with other cardiac conditions (including myocarditis and congestive he art failure), and slight TnI elevations occur in patients with other conditions, including sepsis, renal failure, acidosis, acute neurological disease, and pers istent tachyarrhythmia.PT/[id number] 11:09:00* Test Item Value Reference Range Comments PROTIME (BEAKER) (test hlbu=531) 14.9 seconds 11.7-14.7 INR (BEAKER) (test nrni=469) 1.2 <=5.9 PARTIAL THROMBOPLASTIN TIME (BEAKER) (test vemc=508) 24.4 seconds 22.5-36.0 RECOMMENDED COUMADIN/WARFARIN INR THERAPY RANGESSTANDARD DOSE: 2.0 - 3.0 Inclu miguel: PROPHYLAXIS for venous thrombosis, systemic embolization; TREATMENT for anjali ous thrombosis and/or pulmonary embolus.HIGH RISK: Target INR is 2.5-3.5 for pat ients with mechanical heart valves.Prior to initiating heparinPrior to initiatin g heparinCBC W/PLT COUNT & AUTO [id number] 11:04:00* Test Item Value Reference Range Comments WHITE BLOOD CELL COUNT (BEAKER) (test wddi=285) 8.8 K/ L 4.0-10.0 RED BLOOD CELL COUNT (BEAKER) (test chfb=465) 3.63 M/ L 4.20-5.80 HEMOGLOBIN (BEAKER) (test czct=514) 12.5 GM/DL 13.0-16.8 HEMATOCRIT (BEAKER) (test lcwp=055) 35.5 % 40.0-50.0 MEAN CORPUSCULAR VOLUME (BEAKER) (test tglq=040) 97.9 fL 82.0-98.0 MEAN CORPUSCULAR HEMOGLOBIN (BEAKER) (test obgs=888) 34.5 pg 27.0-33.0 MEAN CORPUSCULAR HEMOGLOBIN CONC (BEAKER) (test htjm=897) 35.2 GM/DL 32.0-36.0 RED CELL DISTRIBUTION WIDTH (BEAKER) (test eioa=399) 12.5 % 10.3-14.2 PLATELET COUNT (BEAKER) (test kjjp=816) 135 K/CU MM 150-430 MEAN PLATELET VOLUME (BEAKER) (test lryc=334) 6.9 fL 6.5-10.5 NUCLEATED RED BLOOD CELLS (BEAKER) (test vmfs=068) 0 /100 WBC 0-0 NEUTROPHILS RELATIVE PERCENT (BEAKER) (test bdie=203) 71 % LYMPHOCYTES RELATIVE PERCENT (BEAKER) (test xryr=310) 15 % MONOCYTES RELATIVE PERCENT (BEAKER) (test bscx=315) 12 % EOSINOPHILS RELATIVE PERCENT (BEAKER) (test rbdz=551) 3 % BASOPHILS RELATIVE PERCENT (BEAKER) (test xktj=730) 0 % NEUTROPHILS ABSOLUTE COUNT (BEAKER) (test eczk=105) 6.23 K/ L 1.80-8.00 LYMPHOCYTES ABSOLUTE COUNT (BEAKER) (test nali=070) 1.27 K/ L 1.48-4.50 MONOCYTES ABSOLUTE COUNT (BEAKER) (test hegq=178) 1.00 K/ L 0.00-1.30 EOSINOPHILS ABSOLUTE COUNT (BEAKER) (test gxhf=647) 0.23 K/ L 0.00-0.50 BASOPHILS ABSOLUTE COUNT (BEAKER) (test urys=858) 0.02 K/ L 0.00-0.20 0.00BASIC METABOLIC [id number] 15:53:00* Test Item Value Reference Range Comments SODIUM (BEAKER) (test kfbe=153) 134 meq/L 136-145 POTASSIUM (BEAKER) (test mqcd=237) 4.3 meq/L 3.5-5.1 CHLORIDE (BEAKER) (test rdnb=605) 103 meq/L 98-107 CO2 (BEAKER) (test sfns=877) 20 meq/L 22-29 BLOOD UREA NITROGEN (BEAKER) (test wwxp=304) 24 mg/dL 7-21 CREATININE (BEAKER) (test afjm=004) 0.81 mg/dL 0.57-1.25 GLUCOSE RANDOM (BEAKER) (test oyyt=245) 102 mg/dL 70-105 CALCIUM (BEAKER) (test como=763) 9.5 mg/dL 8.4-10.2 EGFR (BEAKER) (test sipe=0894) 97 mL/min/1.73 sq m ESTIMATED GFR IS NOT ACCURATE CREATININE CLEARANCE IN PREDICTING GLOMERULAR FILTRATION RATE. ESTIMATED GFR IS NOT APPLICABLE FOR DIALYSIS PATIENTS. CBC W/PLT COUNT & AUTO [id number] 15:40:00* Test Item Value Reference Range Comments WHITE BLOOD CELL COUNT (BEAKER) (test llps=316) 6.6 K/ L 4.0-10.0 RED BLOOD CELL COUNT (BEAKER) (test cfbt=421) 4.05 M/ L 4.20-5.80 HEMOGLOBIN (BEAKER) (test gcby=571) 13.3 GM/DL 13.0-16.8 HEMATOCRIT (BEAKER) (test icej=873) 40.5 % 40.0-50.0 MEAN CORPUSCULAR VOLUME (BEAKER) (test hkqs=815) 100.0 fL 82.0-98.0 MEAN CORPUSCULAR HEMOGLOBIN (BEAKER) (test cawc=355) 32.9 pg 27.0-33.0 MEAN CORPUSCULAR HEMOGLOBIN CONC (BEAKER) (test yirq=064) 32.9 GM/DL 32.0-36.0 RED CELL DISTRIBUTION WIDTH (BEAKER) (test zfhv=843) 12.3 % 10.3-14.2 PLATELET COUNT (BEAKER) (test osog=329) 140 K/CU MM 150-430 MEAN PLATELET VOLUME (BEAKER) (test qnfi=251) 7.1 fL 6.5-10.5 NUCLEATED RED BLOOD CELLS (BEAKER) (test gfgb=260) 0 /100 WBC 0-0 NEUTROPHILS RELATIVE PERCENT (BEAKER) (test kmqb=629) 62 % LYMPHOCYTES RELATIVE PERCENT (BEAKER) (test yakp=326) 22 % MONOCYTES RELATIVE PERCENT (BEAKER) (test eykm=370) 11 % EOSINOPHILS RELATIVE PERCENT (BEAKER) (test kqet=017) 4 % BASOPHILS RELATIVE PERCENT (BEAKER) (test hhtj=922) 1 % NEUTROPHILS ABSOLUTE COUNT (BEAKER) (test kmgm=284) 4.05 K/ L 1.80-8.00 LYMPHOCYTES ABSOLUTE COUNT (BEAKER) (test gsma=782) 1.45 K/ L 1.48-4.50 MONOCYTES ABSOLUTE COUNT (BEAKER) (test lzha=526) 0.75 K/ L 0.00-1.30 EOSINOPHILS ABSOLUTE COUNT (BEAKER) (test cpbp=435) 0.28 K/ L 0.00-0.50 BASOPHILS ABSOLUTE COUNT (BEAKER) (test fpsx=414) 0.03 K/ L 0.00-0.20 0.00HEPATIC FUNCTION [id number] 12:55:00* Test Item Value Reference Range Comments TOTAL PROTEIN (BEAKER) (test inmc=896) 7.2 gm/dL 6.0-8.3 ALBUMIN (BEAKER) (test gnmo=8075) 3.5 g/dL 3.5-5.0 BILIRUBIN TOTAL (BEAKER) (test pxds=397) 0.6 mg/dL 0.2-1.2 BILIRUBIN DIRECT (BEAKER) (test afvj=216) 0.2 mg/dL 0.1-0.5 ALKALINE PHOSPHATASE (BEAKER) (test fmge=862) 54 U/L 40-150 AST (SGOT) (BEAKER) (test cpna=910) 21 U/L 5-34 ALT (SGPT) (BEAKER) (test zawt=158) 29 U/L 6-55 BASIC METABOLIC [id number] 12:55:00* Test Item Value Reference Range Comments SODIUM (BEAKER) (test gare=560) 136 meq/L 136-145 POTASSIUM (BEAKER) (test llwb=918) 5.2 meq/L 3.5-5.1 CHLORIDE (BEAKER) (test fvyg=069) 103 meq/L 98-107 CO2 (BEAKER) (test ehkf=960) 26 meq/L 22-29 BLOOD UREA NITROGEN (BEAKER) (test swsb=364) 20 mg/dL 7-21 CREATININE (BEAKER) (test nogf=468) 1.03 mg/dL 0.57-1.25 GLUCOSE RANDOM (BEAKER) (test trkq=788) 101 mg/dL 70-105 CALCIUM (BEAKER) (test gfho=868) 9.5 mg/dL 8.4-10.2 EGFR (BEAKER) (test zubl=5969) 73 mL/min/1.73 sq m ESTIMATED GFR IS NOT ACCURATE CREATININE CLEARANCE IN PREDICTING GLOMERULAR FILTRATION RATE. ESTIMATED GFR IS NOT APPLICABLE FOR DIALYSIS PATIENTS. ALPHA FETOPROTEIN (AFP), TUMOR [id number] 12:36:00* Test Item Value Reference Range Comments ALPHA-FETOPROTEIN (BEAKER) (test lysd=7224) 3.5 ng/mL <10.0 Effective 06/29/2014: Reference Range ChangeNew: <10.0 Previous: 0.0-8.0CBC W/PLT COUNT & AUTO [id number] 12:11:00* Test Item Value Reference Range Comments WHITE BLOOD CELL COUNT (BEAKER) (test npxl=286) 5.3 K/ L 4.0-10.0 RED BLOOD CELL COUNT (BEAKER) (test touq=536) 4.09 M/ L 4.20-5.80 HEMOGLOBIN (BEAKER) (test edtp=282) 13.6 GM/DL 13.0-16.8 HEMATOCRIT (BEAKER) (test lpxj=630) 40.6 % 40.0-50.0 MEAN CORPUSCULAR VOLUME (BEAKER) (test wskp=662) 99.2 fL 82.0-98.0 MEAN CORPUSCULAR HEMOGLOBIN (BEAKER) (test tyyy=888) 33.2 pg 27.0-33.0 MEAN CORPUSCULAR HEMOGLOBIN CONC (BEAKER) (test hwzq=231) 33.4 GM/DL 32.0-36.0 RED CELL DISTRIBUTION WIDTH (BEAKER) (test qfox=921) 13.9 % 10.3-14.2 PLATELET COUNT (BEAKER) (test wwqc=836) 148 K/CU MM 150-430 MEAN PLATELET VOLUME (BEAKER) (test nkem=657) 6.7 fL 6.5-10.5 NUCLEATED RED BLOOD CELLS (BEAKER) (test yguv=678) 0 /100 WBC 0-0 NEUTROPHILS RELATIVE PERCENT (BEAKER) (test kauj=909) 55 % LYMPHOCYTES RELATIVE PERCENT (BEAKER) (test orkk=416) 26 % MONOCYTES RELATIVE PERCENT (BEAKER) (test vjuk=296) 11 % EOSINOPHILS RELATIVE PERCENT (BEAKER) (test aktv=972) 7 % BASOPHILS RELATIVE PERCENT (BEAKER) (test kkdq=203) 1 % NEUTROPHILS ABSOLUTE COUNT (BEAKER) (test tmjl=495) 2.92 K/ L 1.80-8.00 LYMPHOCYTES ABSOLUTE COUNT (BEAKER) (test kgpn=053) 1.35 K/ L 1.48-4.50 MONOCYTES ABSOLUTE COUNT (BEAKER) (test ofcp=180) 0.57 K/ L 0.00-1.30 EOSINOPHILS ABSOLUTE COUNT (BEAKER) (test hshb=499) 0.37 K/ L 0.00-0.50 BASOPHILS ABSOLUTE COUNT (BEAKER) (test kxlt=709) 0.05 K/ L 0.00-0.20 0.00PROTHROMBIN [id number] 12:01:00* Test Item Value Reference Range Comments PROTIME (BEAKER) (test woym=620) 13.6 seconds 11.7-14.7 INR (BEAKER) (test lfew=896) 1.1 <=5.9 RECOMMENDED COUMADIN/WARFARIN INR THERAPY RANGESSTANDARD DOSE: 2.0 - 3.0 Inclu miguel: PROPHYLAXIS for venous thrombosis, systemic embolization; TREATMENT for anjali ous thrombosis and/or pulmonary embolus.HIGH RISK: Target INR is 2.5-3.5 for pat ients with mechanical heart valves.
[2019-03-17 10:00] VITALS: BP 106/61
== END | disposition home or self-care (01) ==
LOC: OR 06:25
PROVIDERS: ATTEND Internal Medicine Gastroenterology
DX: Z12.11 Encounter for screening for malignant neoplasm of colon (principal); D12.0 Benign neoplasm of cecum; K64.8 Other hemorrhoids; G47.33 Obstructive sleep apnea (adult) (pediatric); I10 Essential (primary) hypertension; E78.5 Hyperlipidemia, unspecified; E66.01 Morbid (severe) obesity due to excess calories; Z88.2 Allergy status to sulfonamides; Z91.048 Other nonmedicinal substance allergy status; Z01.810 Encounter for preprocedural cardiovascular examination; Z01.812 Encounter for preprocedural laboratory examination; Z79.82 Long term (current) use of aspirin; Z68.42 Body mass index [BMI] 45.0-49.9, adult
CPT/HCPCS: 36415; 45384; 85025; 88305; 93005; J2250; J2704; J3010; 45378